=== PATIENT | male | born 1935 | race Caucasian/White ===

== ENCOUNTER → 2017-01-27 | Day surgery (SDC) | payer MEDICARE ==
[~2017-01-27] VITALS: Ht 177.8 cm; Wt 116.4 kg
[~2017-01-27] MED LIST: AVODART0.5 MG PO; COZAAR100 MG PO; LAMISIL250 MG PO; LOZOL2.5 MG PO; MOBIC15 MG PO; NIZORAL30 GM TOP; TRIAMCINOLONE454 GM TOP
--- NOTE | ~2017-01-27 | OR ---
PATIENT'S NAME: MARÍA HUGO [facility] AGE: 81 Y [address] ROOM: [place] [address] LOCATION: [facility] [place] ADMIT DATE: 01/27/2017 OR/Procedure Report DISCHARGE DATE: FAMILY PHYSICIAN: JUAN CARLOS BUNDY MD ATTENDING PHYSICIAN: Edwar Hillman SURGEON: Edwar Hillman MD CARBON ACCOUNTANT: DATE OF PROCEDURE: 01/27/2017 PREOPERATIVE DIAGNOSIS: History of urothelial carcinoma and carcinoma in situ, status post BCG, BCG plus alpha-interferon, and most recently intravesical chemotherapy. POSTOPERATIVE DIAGNOSIS: History of urothelial carcinoma and carcinoma in situ, status post BCG, BCG plus alpha-interferon, and most recently intravesical chemotherapy, with pathology pending. PROCEDURES PERFORMED: 1. Cystoscopy and retrogrades. 2. Bladder biopsy. ANESTHESIA: Local with sedation. INDICATION: This is an 81-year-old gentleman with the above-noted diagnosis. He has been followed for many years. He has low-grade and noninvasive disease, but he has been diagnosed with carcinoma in situ, and he has demonstrated recurrences, putting him at a higher risk category. He has failed various intravesical regimens. He has been on the [place] protocol per Dr. Ca which involves bladder installation of docetaxel and gemcitabine. He was seen for surveillance. Unfortunately, his NMP22 bladder check was positive. We have a cytology pending. He was found to have erythematous changes at the bladder neck and trigone. He has also had positive cytology from the left upper tract. He has had biopsies done. He presents at this time for evaluation and biopsy. DESCRIPTION OF PROCEDURE: Having obtained his informed consent, the patient was taken to the operating room. He was prepped and draped sterilely and in lithotomy position. IV sedation was administered. The 21-Kiswahili cystoscope was assembled and guided into the urethra. The course of the urethra was unremarkable. He did demonstrate some prostatic hypertrophy, but he is maintained chronically on a 5 alpha-reductase inhibitor. Moving into the bladder, he had areas of scarring. His right ureteral orifice was misshapen from previous resection. Left ureteral orifice was unremarkable. He had an erythematous area at the trigone as noted previously. On careful examination of the bladder using the 30- and 70-degree lenses, I found no papillary PATIENT'S NAME: BETHEL MARÍA Leonardo [facility] AGE: 81 Y [address] ROOM: [place] [address] LOCATION: [facility] [place] ADMIT DATE: 01/27/2017 OR/Procedure Report DISCHARGE DATE: FAMILY PHYSICIAN: JUAN CARLOS BUNDY MD ATTENDING PHYSICIAN: Edwar Hillman. In addition, I did not see anything at the anterior position that merited biopsy. After careful bladder examination, retrogrades were obtained. Initial fluoroscopy revealed some calcifications in the pelvis. Contrast was instilled on the right side first. The ureter was delicate and unobstructed. He had some J-hooking from his prostatic hypertrophy, but there was no evidence of obstruction, nor were there any filling defects. Calyces were finely cupped. Careful study was obtained on the left side. As noted, that was the side that had previously demonstrated a positive cytology. Importantly, we found no disease with ureteroscopy and biopsy. His retrograde study was unchanged. There is no evidence of disease at this time. There was no filling defect. The ureter drained nicely. Calyces were finely cupped with no upper tract filling defects. The resectoscope was now placed. I took a employer relations representative loop through the tissue at the trigone, being careful to avoid the orifices. That tissue was sent to pathology. I then spent some time with the cautery mode, cauterizing the base and the periphery of the biopsy site. At the conclusion, we had good hemostasis. The bladder was drained, and the case was concluded. The patient tolerated the procedure well. Blood loss was negligible. The above-noted specimen was sent. The patient returned to the outpatient recovery area, awake and in stable condition. EDWAR HILLMAN MD SF/modl /[id number] CC: MD Pavan Doe MD d: 01/27/17 1607 t: 01/29/17 0935, OPERATIVE SUMMARY
--- NOTE | ~2017-01-27 | HP ---
PATIENT'S NAME: MARÍA HUGO [facility] AGE: 81 Y [address] ROOM: [place], [place] [address] LOCATION: [facility] ADMIT DATE: 01/27/2017 History & Physical DISCHARGE DATE: FAMILY PHYSICIAN: JUAN CARLOS BUNDY MD ATTENDING PHYSICIAN: Dong Hillman DATE OF SERVICE: CHIEF COMPLAINT: Bladder cancer. HISTORY OF PRESENT ILLNESS: The patient is seen in followup for his history of high-risk urothelial carcinoma. He has also been diagnosed with carcinoma in situ. His original diagnosis dates back over 6 years. He had low-grade noninvasive disease, it was multifocal. It is now considered high risk as he has failed multiple courses of intravesical therapy and more recently, he has been on intravesical chemotherapy per Dr. Ca in the [place] protocol. His last bladder instillation of docetaxel and gemcitabine was in November of this year. in October. He is without complaint today. He has some urinary frequency. He denies any hematuria. He continues on dutasteride for his marked prostatic hypertrophy. 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 He has an appointment next month to follow up with Dr. Johns. Urine today is unremarkable on dipstick and on microscopic. He has a few white cells. Unfortunately, as we will see, his NMP22 BladderChek is positive. We have a cytology pending. He was prepped and draped. On cystoscopy, he has changes of BPH. We also find erythematous changes at the trigone and at the 12 o'clock position on the bladder neck. These were sites of previous involvement. He has also had positive cytology from the left upper tract. He has had biopsies there. Based on today's findings, I have recommended cystoscopy with biopsies as well as retrograde evaluation. He has been through before. He understands and agrees. Arrangements were made for 2 weeks from today. He will be in touch sooner if he has any questions or concerns. IMPRESSION: History of urothelial carcinoma with carcinoma in situ refractory to BCG, BCG plus alpha interferon, and most recently intravesical chemotherapy as above. PLAN: PATIENT'S NAME: MARÍA HUGO [facility] AGE: 81 Y [address] ROOM: [place], [place] [address] LOCATION: [facility] ADMIT DATE: 01/27/2017 History & Physical DISCHARGE DATE: FAMILY PHYSICIAN: JUAN CARLOS BUNDY MD ATTENDING PHYSICIAN: Dong Hillman Cystoscopy, retrogrades and biopsies as above. DONG HILLMAN MD SFH/modl /[id number] CC: MD Silverio Torres MD D: [id number] T: [id number] HISTORY & PHYSICAL
[2017-01-27 11:58] LABS: BASOPHIL # 0.1 K/uL (0.0-0.2); BASOPHIL % 0.9 %; EOSINOPHIL # 0.3 K/uL (0.0-0.5); EOSINOPHIL % 3.2 %; HEMATOCRIT 45.5 % (33.0-50.0); IMMATURE GRANULOCYTE % 0.3 %; LYMPHOCYTE # 1.9 K/uL (0.8-4.0); LYMPHOCYTE % 19.6 %; MCH 31.6 pg (27.0-34.0); MCV 95.8 fl (83.0-98.0); MONOCYTE # 0.7 K/uL (0.0-1.0); MONOCYTE % 7.5 %; MPV 10.9 fl (9.4-12.4); NEUTROPHIL # (ANC) 6.5 K/uL (1.4-9.0); NEUTROPHIL % 68.5 %; NRBC % 0 /100WBC (0-0.00); PLATELET COUNT 172 K/uL (150-450); RBC 4.75 M/uL (3.50-5.50); RDW-CV 13.2 % (11.9-14.6); WBC 9.5 K/uL (4.0-11.0)
[2017-01-27 12:20] LABS: ALBUMIN 3.6 gm/dL (3.5-5.0); ALK PHOS 57 IU/L (33-138); ALT 20 IU/L (12-78); ANION GAP 11.4 (10.0-19.0); AST 12 IU/L (10-40); BLOOD UREA NITROGEN 24 mg/dL (6-24); CALCIUM 8.8 mg/dL (8.5-10.5); CHLORIDE 104 mMol/L (96-110); CO2 30 mMol/L (22-32); CREATININE 1.1 mg/dL (0.6-1.3); ESTIMATED GFR (MDRD EQUATION) > 60; POTASSIUM 4.4 mMol/L (3.7-5.1); SODIUM 141 mMol/L (135-145); TOTAL BILIRUBIN 0.7 mg/dL (0.0-1.5); TOTAL PROTEIN 7.8 g/dL (6.0-8.4)
== END | disposition disaster alternative care site (69) ==
LOC: GPOC 01-23 10:00 → GSDC 11:05
PROVIDERS: Urology
PROC: 0TBB8ZX Excision of Bladder, Via Natural or Artificial Opening Endoscopic, Diagnostic (ICD-10-PCS; principal; 2017-01-27)
DX: D09.0 Carcinoma in situ of bladder (principal); Z87.891 Personal history of nicotine dependence
CPT/HCPCS: C1751; J1956; J7030